=== PATIENT | male | born 1950 | race Caucasian/White ===

== ENCOUNTER 2019-03-28 11:50 | Emergency (ER) | payer MEDICAID, MEDICARE, OTHER ==
--- OUTSIDE RECORDS SUMMARY | 2019-03-28 13:30 | XMS REPORT | Continuity of Care Document ---
:1950 External Reference #:[id number] Author Name Jonnie Hamilton N.P. Address [address] [facility] [address] [place] [address] Problems Description No Information Available Social History Type Date Description Comments Sex Unknown Tobacco Use Start: Unknown Heavy tobacco smoker (more than 10 15-20 cigarettes/day) ETOH Use Occasionally consumes alcohol Recreational Drug Use Negative For Denies Drug Use Tobacco Use Start: Unknown Heavy tobacco smoker (more than 10 cigarettes/day) Smoking Status Reviewed: 11/20/18 Heavy tobacco smoker (more than 10 cigarettes/day) Allergies, Adverse Reactions, Alerts Description No Known Drug Allergies Medications Active Medications SIG Qnty Indications Ordering Provider Date Amoxicillin/Clavulana 1 tab by mouth 20tabs J01.40 Merlene De Anda, 2018 te Potassium twice a day M.D. 875-125mg Tablets Metformin HCL ER 1 by mouth every 90tabs E11.65 Merlene De Anda, 2017 750mg day M.D. Tablets ER 24HR Sildenafil Citrate 1-2 tab by mouth 90tabs N52.9 Merlene De Anda, 2016 20mg every day as M.D. Tablets needed Lisinopril take one tablet 90tabs E11.65 Merlene De Anda, 01/27/2016 2.5mg by mouth every M.D. Tablets day I25.10 I42.9 Womens Daily Formula/Folic 1 by mouth every E55.9 Merlene De Anda, 2015 Acid/Calcium/Iron day M.D. Tablets Aspirin 1 by mouth every 90tabs I25.10 Merlene De Anda, 11/09/[address] day M.D. I25.2 I42.9 Atorvastatin Calcium take one tablet by 90tabs I25.2 Merlene De Anda, 06/2015 20mg mouth every day M.D. Tablets I25.10 E78.2 Plavix take one tablet by 90tabs Merlene De Anda M.D. 10/28/2015 75mg Tablets mouth every day Immunizations CPT Code Status Date Vaccine Lot # U-Flu Given 01/28/2019 Influenza,Unspecified U-Flu Given 01/01/2019 Influenza,Unspecified [id number] Given 10/25/2018 Zoster Shingles Vaccine For Injection [id number] Given 01/07/2018 Flu Vaccine 3+Yrs Old(Fluzone) [id number] Given 01/09/2016 Flu Vaccine [id number] Vital Signs Date Vital Result Comment 02/26/2019 10:38am BP Systolic 122 mmHg BP Diastolic 64 mmHg Height 71 inches 5'11" Weight 194.00 lb BMI (Body Mass Index) 27.1 kg/m2 Heart Rate 84 /min Respiratory Rate 16 /min 11/26/2018 9:55am BP Systolic 118 mmHg BP Diastolic 64 mmHg Height 71 inches 5'11" Weight 194.00 lb BMI (Body Mass Index) 27.1 kg/m2 Heart Rate 72 /min Respiratory Rate 16 /min Results Test Acquired Date Facility Test Result H/L Range Note CBC With Diff 11/12/2018 [facility] WBC 8.0 10*3/uL (4.1-11.0) [address] (607)- - RBC 4.91 10*6/uL (4.60-6.10) HGB 15.5 g/dL (13.5-18.0) HCT 44.7 % (41.0-53.0) MCV 91.0 fL (80.0-95.0) MCH 31.6 pg (27.0-32.0) MCHC 34.7 g/dL (32.0-36.0) RDW 13.4 % (10.5-14.5) PLT 146 10*3/uL Low (150-450) MPV 9.5 fL (7.1-10.7) Neut % 54.7 % (35.0-75.0) Lymph % 36.0 % (16.0-52.0) Delta % 6.3 % (0.0-8.0) Eos % 2.4 % (0.0-5.0) Baso % 0.6 % (0.0-4.0) Neut # 4.4 10*3/uL (1.8-7.7) Lymph # 2.9 10*3/uL (1.2-4.8) Delta # 0.5 10*3/uL (0.0-0.8) Eos # 0.2 10*3/uL (0.0-0.5) Baso # 0.0 10*3/uL (0.0-0.2) CMP 11/12/2018 [facility] Sodium 142 mmol/L (136-145) [address] (127)- - Potassium 5.2 mmol/L (3.6-5.2) Chloride 107 mmol/L (100-108) Co2 34 mmol/L High (22-31) Anion Gap 1 mmol/L Low (7-16) Urea Nitrogen 16 mg/dL (7-24) Creatinine 1.01 mg/dL (0.80-1.30) BUN/Creat Ratio 15.8 RATIO (10.0-20.0) Glucose 160 mg/dL High (70-99) Calcium 9.2 mg/dL (8.4-10.2) Total Protein 7.0 g/dL (6.4-8.2) Albumin 4.1 g/dL (3.2-4.5) Globulin 2.9 g/dL (2.7-4.3) Alb/Glob Ratio 1.4 RATIO Alkaline Phosphatase 81 U/L (45-117) Bilirubin,Total 0.6 mg/dL (0.0-1.0) Ast (Sgot) 12 U/L (11-39) Alt (SGPT) 26 U/L (12-78) GFR >60 ml/min/1.73m2 (>59) GFR ( Amer) >60 ml/min/1.73m2 (>59) GFR Interpretation <SEE NOTE> 1 Laboratory test 11/12/2018 [facility] CRP, Sensitive @ 0.9 mg/L 2 finding [address] (778)- - Lipid 11/12/2018 [facility] Cholesterol @ 121 mg/dL (0-200) [address] (607)- - Triglyceride @ 84 mg/dL (30-200) HDL Cholesterol @ 41 mg/dL (>40) 3 Chol/HDL Ratio 3.0 RATIO 4 LDL Chol (Calc) 63 mg/dL (<130) 5 Laboratory 11/12/2018 [facility] TSH,Ultrasensitive @ 1.520 (0.360- 4.170) test finding [address] mIU/L (607)- - Hemoglobin 11/12/2018 [facility] Hemoglobin A1c @ 7.4 % High (4.0-6.0) 6 A1c [address] (607)- - Est Average Glucose 166 mg/dL Laboratory test 11/12/2018 [facility] 25 Hydroxy Vit 27 ng/mL Low (31- 100) 7 finding [address] D @ (607)- - 1 NORMAL KIDNEY FUNCTION OR MILD DISEASE - GFR >OR= 60 CHRONIC KIDNEY DISEASE - GFR 15 - 59 RENAL FAILURE - GFR <15 Est. GFR calculation based on the MDRD study equation, which assumes a steady state for creatinine. Est. GFR should not be used for medication dosing. 2 RELATIVE RISK CATEGORY AND AVERAGE hs-CRP LEVEL: LOW RISK < 1.0 MG/L AVERAGE RISK 1.0 to 3.0 MG/L HIGH RISK > 3.0 MG/L 3 PER NCEP ATP III GUIDELINES: RESULTS LOWER THAN 40 MG/DL ARE SUGGESTIVE OF INCREASED RISK FOR CORONARY ARTERY DISEASE. RESULTS > OR = TO 60 MG/DL ARE CONSIDERED A NEGATIVE RISK FACTOR. 4 INTERPRETATION OF CHOL-HDL RATIO CHD RISK FEMALE MALE VERY HIGH >8.3 >14.3 HIGH 5.6- 8.3 6.7- 14.3 AVERAGE 3.7- 5.6 4.0- 6.7 BELOW AVERAGE 2.5- 3.7 2.7- 4.0 PROTECTED <2.5 <2.7 5 PER NCEP ATP III GUIDELINES: OPTIMAL < 100 NEAR OPTIMAL 100 - 129 BORDERLINE HIGH 130 - 159 HIGH 160 - 189 VERY HIGH > 189 6 Performed using Siemens [place] immunoassay. Care must be taken when interpreting HbA1c results in patients with a hemoglobin variant or decreased erythrocyte lifespan. Values 5.7 - 6.4% suggest prediabetes. Values >=6.5% are diagnostic for diabetes. REFERENCE: DIABETES CARE 2018: 41(S13-S27). 7 A REVIEW OF THE LITERATURE SUGGESTS THE FOLLOWING RANGES FOR THE CLASSIFICATION OF 25-OH VITAMIN D STATUS: VITAMIN D STATUS 25-OH VITAMIN D DEFICIENCY <20 NG/ML INSUFFICIENCY 20-30 NG/ML SUFFICIENCY 31 - 100 NG/ML TOXICITY > 100 NG/ML A PEDIATRIC REFERENCE RANGE HAS NOT BEEN ESTABLISHED USING THIS METHOD. Procedures Date Code Description Status 04/08/2007 [id number] Colonoscopy Completed Medical Devices Description No Information Available Encounters Type Date Location Provider Dx Diagnosis Office Visit 02/26/2019 Breana Hamilton N.P. I42.9 Cardiomyopathy, 10:30a unspecified I25.10 Athscl heart disease of [place] coronary artery w/o ang pctrs E78.2 Mixed hyperlipidemia E11.65 Type 2 diabetes mellitus with hyperglycemia J44.9 Chronic obstructive pulmonary disease, unspecified R60.0 Localized edema F17.210 Nicotine dependence, cigarettes, uncomplicated L20.9 Atopic dermatitis, unspecified J30.9 Allergic rhinitis, unspecified L40.9 Psoriasis, unspecified H53.30 Unspecified disorder of binocular vision H90.6 Mixed conductive and sensorineural hearing loss, bilateral N52.9 Male erectile dysfunction, unspecified H26.9 Unspecified cataract E55.9 Vitamin D deficiency, unspecified I25.2 Old myocardial infarction I83.813 Varicose veins of bilateral lower extremities with pain R06.02 Shortness of breath M54.17 Radiculopathy, lumbosacral region M51.37 Other intervertebral disc degeneration, lumbosacral region J01.40 Acute pansinusitis, unspecified J20.9 Acute bronchitis, unspecified R09.81 Nasal congestion Office Visit 11/26/2018 10:00a Merlene Horne, I42.9 Cardiomyopathy , M.D. unspecified I25.10 Athscl heart disease of [place] coronary artery w/o ang pctrs E78.2 Mixed hyperlipidemia E11.65 Type 2 diabetes mellitus with hyperglycemia J44.9 Chronic obstructive pulmonary disease, unspecified R60.0 Localized edema F17.210 Nicotine dependence, cigarettes, uncomplicated L20.9 Atopic dermatitis, unspecified J30.9 Allergic rhinitis, unspecified L40.9 Psoriasis, unspecified H53.30 Unspecified disorder of binocular vision H90.6 Mixed conductive and sensorineural hearing loss, bilateral N52.9 Male erectile dysfunction, unspecified H26.9 Unspecified cataract E55.9 Vitamin D deficiency, unspecified I25.2 Old myocardial infarction I83.813 Varicose veins of bilateral lower extremities with pain R06.02 Shortness of breath M54.17 Radiculopathy, lumbosacral region M51.37 Other intervertebral disc degeneration, lumbosacral region Office Visit 11/12/2018 8:45a Merlene Horne, I42.9 Cardiomyopathy , M.D. unspecified I25.10 Athscl heart disease of [place] coronary artery w/o ang pctrs E78.2 Mixed hyperlipidemia E11.65 Type 2 diabetes mellitus with hyperglycemia J44.9 Chronic obstructive pulmonary disease, unspecified R60.0 Localized edema F17.210 Nicotine dependence, cigarettes, uncomplicated L20.9 Atopic dermatitis, unspecified J30.9 Allergic rhinitis, unspecified L40.9 Psoriasis, unspecified H53.30 Unspecified disorder of binocular vision H90.6 Mixed conductive and sensorineural hearing loss, bilateral N52.9 Male erectile dysfunction, unspecified H26.9 Unspecified cataract E55.9 Vitamin D deficiency, unspecified I25.2 Old myocardial infarction I83.813 Varicose veins of bilateral lower extremities with pain R06.02 Shortness of breath M54.17 Radiculopathy, lumbosacral region M51.37 Other intervertebral disc degeneration, lumbosacral region Assessments Date Code Description Provider 02/26/2019 I42.9 Cardiomyopathy, unspecified Jonnie Hamitlon N.P. 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 02/26/2019 E11.65 Type 2 diabetes mellitus with hyperglycemia Jonnie Hamilton N.P. 02/26/2019 J44.9 Chronic obstructive pulmonary disease, Jonnie Hamilton N.P. unspecified 02/26/2019 R60.0 Localized edema Jonnie Hamilton N.P. 02/26/2019 F17.210 Nicotine dependence, cigarettes, Jonnie Hamilton N.P. uncomplicated 02/26/2019 L20.9 Atopic dermatitis, unspecified Jonnie Hamilton N.P. 02/26/2019 J30.9 Allergic rhinitis, unspecified Jonnie Hamilton N.P. 02/26/2019 L40.9 Psoriasis, unspecified Jonnie Hamilton N.P. 02/26/2019 H53.30 Unspecified disorder of binocular vision Jonnie Hamilton N.P. 02/26/2019 H90.6 Mixed conductive and sensorineural hearing Jonnie Hamilton N.P. loss, bilateral 02/26/2019 N52.9 Male erectile dysfunction, unspecified Jonnie Hamilton N.P. 02/26/2019 H26.9 Unspecified cataract Jonnie Hamilton N.P. 02/26/2019 E55.9 Vitamin D deficiency, unspecified Jonnie Hamilton N.P. 02/26/2019 I25.2 Old myocardial infarction Jonnie Hamilton N.P. 02/26/2019 I83.813 Varicose veins of bilateral lower Jonnie Hamilton N.PYana extremities with pain 02/26/2019 R06.02 Shortness of breath Jonnie Hamilton N.P. 02/26/2019 M54.17 Radiculopathy, lumbosacral region Jonnie Hamilton N.P. 02/26/2019 M51.37 Other intervertebral disc degeneration, Jonnie Hamilton N.PYana lumbosacral region 02/26/2019 J01.40 Acute pansinusitis, unspecified Jonnie Hamilton N.P. 02/26/2019 J20.9 Acute bronchitis, unspecified Jonnie Hamilton N.P. 02/26/2019 R09.81 Nasal congestion Jonnie Hamilton N.P. 11/26/2018 I42.9 Cardiomyopathy, unspecified Merlene De Anda M.D. 11/26/2018 I25.10 Atherosclerotic heart disease of [place]gr[place] Merlene De Anda M.D. coronary artery with 11/26/2018 E78.2 Mixed hyperlipidemia Merlene De Anda M.D. 11/26/2018 E11.65 Type 2 diabetes mellitus with hyperglycemia Merlene De Anda M.D. 11/26/2018 J44.9 Chronic obstructive pulmonary disease, Merlene De Anda M.D. unspecified 11/26/2018 R60.0 Localized edema Merlene De Anda M.D. 11/26/2018 F17.210 Nicotine dependence, cigarettes, Merlene De Anda M.D. uncomplicated 11/26/2018 L20.9 Atopic dermatitis, unspecified Merlene De Anda M.D. 11/26/2018 J30.9 Allergic rhinitis, unspecified Merlene De Anda M.D. 11/26/2018 L40.9 Psoriasis, unspecified Merlene De Anda M.D. 11/26/2018 H53.30 Unspecified disorder of binocular vision Merlene De Anda M.D. 11/26/2018 H90.6 Mixed conductive and sensorineural hearing Merlene De Anda M.D. loss, bilateral 11/26/2018 N52.9 Male erectile dysfunction, unspecified Merlene De Anda M.D. 11/26/2018 H26.9 Unspecified cataract Merlene De Anda M.D. 11/26/2018 E55.9 Vitamin D deficiency, unspecified Merlene De Anda M.D. 11/26/2018 I25.2 Old myocardial infarction Merlene De Anda M.D. 11/26/2018 I83.813 Varicose veins of bilateral lower Merlene De Anda M.D. extremities with pain 11/26/2018 R06.02 Shortness of breath Merlene De Anda M.D. 11/26/2018 M54.17 Radiculopathy, lumbosacral region Merlene De Anda M.D. 11/26/2018 M51.37 Other intervertebral disc degeneration, Merlene De Anda M.D. lumbosacral region 11/12/2018 I42.9 Cardiomyopathy, unspecified Merlene De Anda M.D. 11/12/2018 I25.10 Atherosclerotic heart disease of [place] Merlene De Anda M.D. coronary artery with 11/12/2018 E78.2 Mixed hyperlipidemia Merlene De Anda M.D. 11/12/2018 E11.65 Type 2 diabetes mellitus with hyperglycemia Merlene De Anda M.D. 11/12/2018 J44.9 Chronic obstructive pulmonary disease, Merlene De Anda M.D. unspecified 11/12/2018 R60.0 Localized edema Merlene De Anda M.D. 11/12/2018 F17.210 Nicotine dependence, cigarettes, Merlene De Anda M.D. uncomplicated 11/12/2018 L20.9 Atopic dermatitis, unspecified Merlene De Anda M.D. 11/12/2018 J30.9 Allergic rhinitis, unspecified Merlene De Anda M.D. 11/12/2018 L40.9 Psoriasis, unspecified Merlene De Anda M.D. 11/12/2018 H53.30 Unspecified disorder of binocular vision Merlene De Anda M.D. 11/12/2018 H90.6 Mixed conductive and sensorineural hearing Merlene De Anda M.D. loss, bilateral 11/12/2018 N52.9 Male erectile dysfunction, unspecified Merlene De Anda M.D. 11/12/2018 H26.9 Unspecified cataract Merlene De Anda M.D. 11/12/2018 E55.9 Vitamin D deficiency, unspecified Merlene De Anda M.D. 11/12/2018 I25.2 Old myocardial infarction Merlene De Anda M.D. 11/12/2018 I83.813 Varicose veins of bilateral lower Merlene De Anda M.D. extremities with pain 11/12/2018 R06.02 Shortness of breath Merlene De Anda M.D. 11/12/2018 M54.17 Radiculopathy, lumbosacral region Merlene De Anda M.D. 11/12/2018 M51.37 Other intervertebral disc degeneration, Merlene De Anda M.D. lumbosacral region Plan of Treatment Future Appointment(s):05/29/2019 8:30 am - Merlene De Anda M.D. at [email or web address] - Jonnie Hamilton N.P.I42.9 Cardiomyopathy, unspecifiedComments:STABLE AND ASYMPTOMATIC F/U WITH CARDIOLOGY DIET REVIEWED WT LOSSF/U LAB SMOKING CESSATIONFollow up:6 months.I25.10 Atherosclerotic heart disease of [place] coronary artery without angina pectorisComments:F/U WITH CARDIOLOGY CONTINUE WITH RX AND F/U LAB SMOKING WNQXTYKCLR41.2 Mixed hyperlipidemiaComments:DIET REVIEWED CONTINUE DIETWT LOSSF/U LAB FBWE11.65 Type 2 diabetes mellitus with hyperglycemiaComments:DIET REVIEWED CONTINUE DIETWT LOSSF/U LAB FS qAC AND HS PRN F/U FBWJ44.9 Chronic obstructive pulmonary disease, unspecifiedComments: INCREASE PO FLUIDRESTSMOKING MGJOTOJPPK36.0 Localized edemaComments:ELEVATE LE PRNELASTIC STOCKING / MEDARDO WRAP PRNF/U LABF17.210 Nicotine dependence, cigarettes, uncomplicatedComments:SMOKING CESSATION TKXKJHQEWVWF64.9 Atopic dermatitis, unspecifiedComments:SKIN CARE INSTRUCTIONS LOTION OR BABY OIL 2-3 APPLICATION PER DAYUSE MOISTURIZING SOAPAVOID PROLONGED WATER EXPOSUREAVOID USING HOT WATER IN WNSXSFO47.9 Allergic rhinitis, unspecifiedComments:INCREASE PO FLUID USE ANTIHISTAMINE PRN SECOND HAND SMOKING AVOIDANCE SMOKING BWLZKYIULA66.9 Psoriasis, unspecifiedComments:SKIN CARE INSTRUCTIONS LOTION OR BABY OIL 2-3 APPLICATION PER DAYUSE MOISTURIZING SOAPAVOID PROLONGED WATER EXPOSUREAVOID USING HOT WATER IN JWLPMCY79.30 Unspecified disorder of binocular visionComments:USE GLASSES/CONTACTSF/U WITH ALOYDNUTDCTSWD46.6 Mixed conductive and sensorineural hearing loss, bilateralComments:OBSERVE F/U WITH ENT PRN SMOKING VURYLHPPJA15.9 Male erectile dysfunction, unspecifiedComments: COUNCELLING AND TEACHING ON DIFEEERENT TREATMENT APBLCDAB50.9 Unspecified cataractComments:F/U WITH VECLJDHFDVOQHW66.9 Vitamin D deficiency, unspecifiedComments:INCREASE EXPOSURE TO SUNREVIEW OF DIETI25.2 Old myocardial infarctionComments:F/U WITH CARDIOLOGY CONTINUE WITH RX AND F/U LABI83.813 Varicose veins of bilateral lower extremities with painComments:WT. LOSS ELEVATE LOWER EXT. ELASTIC LUFILXNPR24.02 Shortness of breathComments:INCREASE PO FLUIDRESTSMOKING NUESVTHVAQ64.17 Radiculopathy, lumbosacral regionComments: EXERCISE/HEAT /MESSAGE AVOID HEAVY LIFTING WT LOSS TYLENOL OR MOTRIN PRN DUR TMRIVDBS32.37 Other intervertebral disc degeneration, lumbosacral regionComments :EXERCISE/HEAT /MESSAGEAVOID HEAVY LIFTING WT LOSSTYLENOL OR MOTRIN PRN DUR ZNKJZJRV94.40 Acute pansinusitis, unspecifiedNew Medication:Amoxicillin/ Clavulanate Potassium 875-125 mg - 1 tab by mouth twice a dayComments:INCREASE PO FLUIDTYLENOL OR MOTRIN PRN ANTIHISTAMINE PRNJ20.9 Acute bronchitis, twjetygcdgiK53.81 Nasal congestion Functional Status Description No Information Available Mental Status Description No Information Available Referrals Description No Information Available
[2019-03-28 13:44] VITALS: BP 146/74
--- NOTE | 2019-03-28 14:07 | UC ---
Throat Pain/Nasal [place] HPI - HPI Summary HPI Summary: 68-year-old male presents with 3 day history of right ear pain. States he was diagnosed with a sinus infection around [facility]. He is been treated with 2 courses of antibiotics. Completed his second round approximately 6 days ago. He has taken ibuprofen with some relief in the pain. Denies fever, chills, hearing loss, tinnitus, vertigo, ear drainage, nasal congestion, sinus pain, sore throat, or cough. - History of Current Complaint Chief Complaint: UCEar Stated Complaint: POSSIBLE SINUS INFECTION Time Seen by Provider: 03/28/19 14:03 Hx Obtained From: Patient Pain Intensity: 7 - Allergies/Home Medications Allergies/Adverse Reactions: Allergies Allergy/AdvReac Type Severity Reaction Status Date / Time No Known Allergies Allergy Verified 03/28/19 13:44 Home Medications: Home Medications Aspirin 81 mg PO DAILY 03/28/19 [History Confirmed 03/28/19] Atorvastatin* [Lipitor*] 20 mg PO 1700 03/28/19 [History Confirmed 03/28/19] Clopidogrel Bisulfate [Plavix] 75 mg PO DAILY 03/28/19 [History Confirmed ] Metformin HCl [Metformin HCl ER] 750 mg PO DAILY 03/28/19 [History Confirmed ] lisinopriL [Lisinopril 2.5 MG-] 2.5 mg PO DAILY 03/28/19 [History Confirmed ] PMH/Surg Hx/FS Hx/Imm Hx Endocrine History: Diabetes, Dyslipidemia Cardiovascular History: Cardiac Disease, Hypertension - Surgical History Surgical History: None - Family History Known Family History: Positive: Non-Contributory - Social History Occupation: Retired Lives: With Family Alcohol Use: Occasionally Substance Use Type: None Smoking Status (MU): Light Every Day Tobacco Smoker Type: Cigarettes Review of Systems All Other Systems Reviewed And Are Negative: Yes Constitutional: Negative: Fever, Chills Eyes: Negative: Drainage, Eye Redness ENT: Positive: Ear Ache. Negative: Sore Throat, Nasal Discharge, Sinus Congestion, Sinus Pain/Tenderness Respiratory: Negative: Shortness Of Breath, Cough Cardiovascular: Negative: Chest Pain Gastrointestinal: Negative: Abdominal Pain, Vomiting, Diarrhea, Nausea Genitourinary: Positive: Negative Musculoskeletal: Positive: Negative Neurological: Positive: Negative Is Patient Immunocompromised?: No Physical Exam - Summary Physical Exam Summary: GENERAL APPEARANCE: Well developed, well nourished, alert and cooperative, and appears to be in no acute distress. EYES: Conjunctiva clear. No drainage. EARS: External auditory canals clear, Left TM opaque with good cone of light. Right TM dull without erythema. Hearing grossly intact. NOSE: No nasal congestion. No nasal discharge. THROAT: Pharynx normal. No tonsilar inflammation, swelling, exudate, or lesions. Uvula midline. NECK: Neck supple, non-tender without lymphadenopathy. CARDIAC: Normal S1 and S2. No S3, S4 or murmurs. Rhythm is regular. There is no peripheral edema, cyanosis or pallor. Extremities are warm and well perfused. Capillary refill is less than 2 seconds. Peripheral pulses intact. LUNGS: Clear to auscultation without rales, rhonchi, wheezing or diminished breath sounds. ABDOMEN: Positive bowel sounds. Soft, nondistended, nontender. No guarding or rebound. No masses or hepatosplenomegally. MUSKULOSKELETAL: ROM intact to all extremities. No joint erythema or tenderness. Normal muscular development. Normal gait. SKIN: Skin normal color, texture and turgor with no lesions or eruptions. Triage Information Reviewed: Yes Vital Signs: Initial Vital Signs Temp 98.0 F 03/28/19 13:38 Pulse 80 03/28/19 13:38 Resp 16 03/28/19 13:38 BP 146/74 03/28/19 13:38 Pulse Ox 99 03/28/19 13:38 Vital Signs Reviewed: Yes Throat Pain/Nasal Course/Dx - Course Course Of Treatment: 68-year-old male presents with 3 day history of right ear pain. States he was diagnosed with a sinus infection around [facility]. He is been treated with 2 courses of antibiotics. Completed his second round approximately 6 days ago. He has taken ibuprofen with some relief in the pain. Denies fever, chills, hearing loss, tinnitus, vertigo, ear drainage, nasal congestion, sinus pain, sore throat, or cough. Afebrile. Hypertensive otherwise vital signs stable. Patient had no nasal congestion or drainage, normal pharynx, clear external auditory canals, left TM was opaque with good cone of light, right TM was dull without erythema, and remainder of exam was unremarkable. Discussed with patient that his symptoms were likely from a face serous otitis secondary to eustachian tube dysfunction likely from continued inflammation following his sinus infection. Recommending symptomatic treatment with fluticasone nasal spray 2 sprays each nostril once daily and vnkr-[id number]-[id number] analgesics. He is to follow-up with his primary care provider in 5-7 days if symptoms are not improving. Anticipatory guidance and warning symptoms are reviewed with the patient. Verbalizes understanding and agrees with plan of care. - Differential Dx/Diagnosis Differential Diagnosis/HQI/PQRI: Otitis Media, Sinusitis, URI, Other - serous otitis Provider Diagnosis: Acute serous otitis media, right ear, Dysfunction of right eustachian tube Discharge ED - Sign-Out/Discharge Documenting (check all that apply): Patient Departure All imaging exams completed and their final reports reviewed: No Studies - Discharge Plan Condition: Stable Disposition: HOME Patient Education Materials: Serous Otitis Media (ED) Referrals: Merlene De Anda MD [Primary Care Provider] - 5 Days (Follow up in 5-7 days if symptoms do not improve.) Additional Instructions: There is no evidence of an infection of the ear. I suspect that her pain is related to a condition called serous otitis causes a buildup of pressure and sometimes fluid behind the ear that can cause pain without infection. Start using kvfa-[id number] fluticasone nasal spray 2 sprays each nostril once daily. Use of gnnc-tli-blepids analgesics such as acetaminophen (Tylenol) or ibuprofen (Advil, Motrin) according to directions as needed for pain. Follow-up with your primary care provider in 5-7 days if symptoms are not improving. Seek immediate medical attention if you develop a fever greater than 100.5 F, have any loss of hearing, dizziness, drainage or pus from the ear, or any worsening of symptoms. - Billing Disposition and Condition Condition: STABLE Disposition: Home
== END 2019-03-28 14:37 | disposition home or self-care (01) ==
LOC: EDBD 11:50 → UCCORT 11:50
DX: H65.01 Acute serous otitis media, right ear (principal); H69.91 Unspecified Eustachian tube disorder, right ear; E11.9 Type 2 diabetes mellitus without complications; E78.5 Hyperlipidemia, unspecified; F17.210 Nicotine dependence, cigarettes, uncomplicated; Z79.84 Long term (current) use of oral hypoglycemic drugs; Z79.899 Other long term (current) drug therapy
CPT/HCPCS: 99201; G0463